=== PATIENT | male | born 1955 | race Caucasian/White ===

== ENCOUNTER 2018-03-17 17:09 | Observation (INO) | payer SELFPAY ==
[~2018-03-17] VITALS: Ht 182.9 cm; Wt 104.3 kg
[2018-03-17] MEDS ORDERED: GLUCAGON 1MG KIT 1 MG ML IM PRN (18:00)
[2018-03-17] MEDS ORDERED: POTASSIUM CHLORIDE 10% ELIXIR 20 MEQ/15 ML UDCUP PO PRN (18:00)
[2018-03-17] MEDS ORDERED: DIPHENHYDRAMINE HCL 25 MG CAPSULE PO PRN (18:00)
[2018-03-17] MEDS ORDERED: DEXTROSE 50%-WATER 50 ML DISP.SYRIN IV PRN (18:00)
[2018-03-17] MEDS ORDERED: MAG HYDROX/AL HYDROX/SIMETH ES 30 ML SUSP UDCUP PO PRN (18:00)
[2018-03-17] MEDS ORDERED: POTASSIUM CHLORIDE 20 MEQ ERTAB PO PRN (18:00)
[2018-03-17] MEDS ORDERED: NITROGLYCERIN 0.4 MG SL TAB SL PRN (18:00)
[2018-03-17] MEDS ORDERED: LIDOCAINE HCL-MPF 1% 2ML VIAL IJ PRN (18:00)
[2018-03-17] MEDS ORDERED: ACETAMINOPHEN 325 MG TAB PO PRN ×2 (18:00)
[2018-03-17] MEDS ORDERED: POTASSIUM CHLORIDE 20MEQ/100ML 100 ML IV PRN (18:00)
[2018-03-17 18:36] LABS: HEMATOCRIT 43.3 % (42-54); MEAN CORPUSCULAR HEMOGLOBIN 31.7 pg (27.0-33.0); MEAN CORPUSCULAR HGB CONC 34.4 g/dL (32.0-36.0); MEAN CORPUSCULAR VOLUME 92.3 fL (79-99); PLATELET COUNT (AUTO) 121 K/uL (130-400); RED BLOOD CELL COUNT(AUTO) 4.69 MIL/uL (4.50-6.20); RED CELL DISTRIBUTION WIDTH 12.7 % (11.0-15.5); WHITE BLOOD COUNT (AUTO) 6.9 K/uL (4.8-10.8)
[2018-03-17 18:43] VITALS: BP 122/81
[2018-03-17 18:44] LABS: INR 1.02 (0.85-1.15); PARTIAL THROMBOPLASTIN TIME 27.1 SEC (26.3-35.5); PROTHROMBIN TIME 10.7 SEC (9.6-11.6)
[2018-03-17 18:51] LABS: ALBUMIN 3.6 g/dL (3.5-5.0); BILIRUBIN,TOTAL 1.1 mg/dL (0.2-1.0); CREATININE 1.2 mg/dL (0.5-1.5); POTASSIUM 4.1 mmol/L (3.5-5.1); TOTAL PROTEIN, SERUM 6.7 g/dL (6.0-8.3)
[2018-03-17 19:09] LABS: CREATINE KINASE MB 1.3 ng/mL (0.5-3.6); TROPONIN I 0.05 ng/mL (0.00-0.06)
[2018-03-17 19:21] VITALS: BP 135/82
[2018-03-17] MEDS ORDERED: INSULIN R PO SSI SQ SCH (21:00)
[2018-03-17] MEDS ORDERED: ATORVASTATIN CALCIUM 40 MG TABLET PO SCH (21:00)
[2018-03-17] MEDS: METOPROLOL TARTRATE 50 MG TAB PO SCH ×2 (21:08→21:24)
[2018-03-17] MEDS: FAMOTIDINE 20MG TAB 20 MG TAB PO SCH (21:08)
[2018-03-18] VITALS (12 sets, daily range): BP systolic 140–157; BP diastolic 74–104
[2018-03-18 04:32] LABS: HEMATOCRIT 45.5 % (42-54); MEAN CORPUSCULAR HEMOGLOBIN 32.2 pg (27.0-33.0); MEAN CORPUSCULAR VOLUME 91.9 fL (79-99); PLATELET COUNT (AUTO) 126 K/uL (130-400); RED BLOOD CELL COUNT(AUTO) 4.95 MIL/uL (4.50-6.20); RED CELL DISTRIBUTION WIDTH 13.1 % (11.0-15.5); WHITE BLOOD COUNT (AUTO) 8.1 K/uL (4.8-10.8)
[2018-03-18 04:38] LABS: INR 0.98 (0.85-1.15); PROTHROMBIN TIME 10.3 SEC (9.6-11.6)
[2018-03-18 04:46] LABS: CREATININE 1.1 mg/dL (0.5-1.5)
[2018-03-18] MEDS ORDERED: NITROGLYCERIN 5 MG/ML 10 ML VIAL IV ONE (07:44)
[2018-03-18] MEDS ORDERED: BIVALIRUDIN 250 MG/VIAL IV ONE (07:44)
[2018-03-18] MEDS ORDERED: LIDOCAINE HCL 1% 20 ML VIAL ONE (07:44)
[2018-03-18] MEDS ORDERED: IOPAMIDOL-370 100 ML VIAL IV ONE (07:44)
[2018-03-18] MEDS ORDERED: ISOVUE-370 50ML VIAL IV ONE (07:44)
[2018-03-18] MEDS ORDERED: MIDAZOLAM HCL 1 MG/ML 2ML VIAL ONE (07:45)
[2018-03-18] MEDS ORDERED: LABETALOL HCL 5 MG/ML 20ML VIAL IV ONE (08:40)
[2018-03-18] MEDS ORDERED: ASPIRIN 325MG EC TAB 325 MG TABLET.DR PO ONE (08:48)
[2018-03-18] MEDS ORDERED: PRASUGREL HCL 10 MG TABLET ONE (08:48)
[2018-03-18] MEDS ORDERED: ASPIRIN 81 MG EC TAB PO SCH (09:00)
[2018-03-18] MEDS: SODIUM CHLORIDE 0.9% 1000ML 1,000 ML IV SCH ×2 (09:23→12:54)
[2018-03-18] MEDS ORDERED: AEC81 PO (09:30)
[2018-03-18] MEDS ORDERED: METO50 PO (09:30)
[2018-03-18] MEDS ORDERED: ONDANSETRON HCL MDV 20ML 2 MG/ML VIAL IVP PRN (09:30)
[2018-03-18] MEDS ORDERED: ATOR40TA69 PO (09:30)
[2018-03-18] MEDS ORDERED: NAPROXEN 500 MG TABLET PO SCH (11:00)
[2018-03-18] MEDS: METOPROLOL TARTRATE 50 MG TAB PO SCH (11:22)
[2018-03-18] MEDS: FAMOTIDINE 20MG TAB 20 MG TAB PO SCH (11:22)
[2018-03-19] MEDS ORDERED: PRASUGREL HCL 10 MG TABLET PO SCH (09:00)
== END 2018-03-18 18:05 | disposition home or self-care (01) ==
LOC: EDH 17:09 → 3BH 17:10 → UNDOADMOB 17:30 → 2AH 03-18 10:01
PROVIDERS: ADMIT Internal Medicine; ATTEND Internal Medicine
DX: I25.110 Atherosclerotic heart disease of native coronary artery with unstable angina pectoris (principal); I25.5 Ischemic cardiomyopathy; Z80.7 Family history of other malignant neoplasms of lymphoid, hematopoietic and related tissues; Z82.49 Family history of ischemic heart disease and other diseases of the circulatory system; Z88.0 Allergy status to penicillin
CPT/HCPCS: 36415 ×2; 80048; 80053; 80061; 82550; 82553; 83874; 84484; 85027 ×2; 85610 ×2; 85730; 93458; 99285; C1760; C1769; C1874; C1887; C1894; C9600; G0378 ×25; J0583; J1644; J2250; J3490 ×2; J7030; Q9967 ×2; 99156; 99157

== ENCOUNTER 2019-01-21 14:10 | Emergency (ER) | payer MEDICARE ==
[~2019-01-21 14:10] MED LIST: AEC81 PO; ATOR40TA69 PO; METO50 PO
[2019-01-21] MEDS ORDERED: IPRATROPIUM/ALBUTEROL SULFATE 3 ML SOLUTION IH ONE ×2 (15:00→16:31)
[2019-01-21 15:12] LABS: BASOPHILS % (AUTO) 0.4 % (0.0-5.0); EOSINOPHILS % (AUTO) 2.1 % (0.0-8.0); HEMATOCRIT 46.4 % (42-54); LYMPHOCYTES % (AUTO) 40.5 % (21.0-51.0); MEAN CORPUSCULAR HEMOGLOBIN 31.4 pg (27.0-33.0); MEAN CORPUSCULAR HGB CONC 34.3 g/dL (32.0-36.0); MEAN CORPUSCULAR VOLUME 91.5 fL (79-99); PLATELET COUNT (AUTO) 83 K/uL (130-400); RED BLOOD CELL COUNT(AUTO) 5.07 MIL/uL (4.50-6.20); RED CELL DISTRIBUTION WIDTH 13.2 % (11.0-15.5); WHITE BLOOD COUNT (AUTO) 4.2 K/uL (4.8-10.8)
[2019-01-21 15:20] LABS: CREATININE 1.3 mg/dL (0.5-1.5); POTASSIUM 3.7 mmol/L (3.5-5.1)
[2019-01-21 15:23] LABS: INR 0.95 (0.85-1.15); PARTIAL THROMBOPLASTIN TIME 31.3 SEC (26.3-35.5)
[2019-01-21 15:31] LABS: ALBUMIN 3.8 g/dL (3.5-5.0); BILIRUBIN,TOTAL 1.1 mg/dL (0.2-1.0); TOTAL PROTEIN, SERUM 7.2 g/dL (6.0-8.3)
[2019-01-21 16:09] LABS: B-TYPE NATRIURETIC PEPTIDE 16 pg/mL (0-100)
[2019-01-21] MEDS ORDERED: GUAIFENESIN-DM 200/20 MG 10 ML ONE (16:16)
[2019-01-21] MEDS ORDERED: DEXAMETHASONE SOD PHOSPHATE 10MG/ML 1ML VIAL ONE (16:16)
[2019-01-21] MEDS ORDERED: ALBUTEROL SULFATE 0.083% 2.5 MG/3 ML INH IH ONE (16:34)
== END 2019-01-21 17:20 | disposition home or self-care (01) ==
LOC: EDH 14:10
DX: J11.1 Influenza due to unidentified influenza virus with other respiratory manifestations (principal); I10 Essential (primary) hypertension; I25.10 Atherosclerotic heart disease of native coronary artery without angina pectoris; Z88.0 Allergy status to penicillin; Z98.890 Other specified postprocedural states
CPT/HCPCS: 36415; 71045; 71250; 80053; 82550; 83874; 83880; 84484; 85025; 85610; 85730; 93005; 94640 ×2; 96374; 99284; J1100